=== PATIENT | female | born 1970 | race Caucasian/White ===

== ENCOUNTER 2018-01-23 15:45 | Outpatient (CLI) | payer OTHER | END 2018-01-23 15:46 | disposition critical access hospital (66) | LOC: EMS 15:45 | PROVIDERS: ATTEND Surgery | DX: M54.2 Cervicalgia (principal); V49.40XA Driver injured in collision with unspecified motor vehicles in traffic accident, initial encounter; Y92.413 State road as the place of occurrence of the external cause | CPT/HCPCS: A0425; A0429 ==

== ENCOUNTER 2018-01-23 16:26 | Emergency (ER) | payer OTHER ==
[2018-01-23] MEDS ORDERED: NAPROXEN 250 MG TABLET PO STA (16:36)
[2018-01-23] MEDS ORDERED: HYDROcod/ACETAM 5/325 MG TABLET PO STA (16:36)
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
[2018-01-23 18:57] VITALS: BP 140/82
== END 2018-01-23 19:01 | disposition home or self-care (01) ==
LOC: ED 16:26
DX: S09.90XA Unspecified injury of head, initial encounter (principal); S16.1XXA Strain of muscle, fascia and tendon at neck level, initial encounter; V89.2XXA Person injured in unspecified motor-vehicle accident, traffic, initial encounter; Y93.89 Activity, other specified
CPT/HCPCS: 70450; 71046; 72070; 72100; 72125; 99283; A9270